=== PATIENT | male | born 1985 | race Two or more races ===

== ENCOUNTER 2017-09-12 10:35 | Emergency (ER) | payer SELFPAY ==
[~2017-09-12] VITALS: Ht 172.7 cm; Wt 64.0 kg
[2017-09-12] MEDS ORDERED: BACITRACIN ZINC OINT 500U/GM, 0.9 GM ONE (12:06)
[2017-09-12 14:06] VITALS: BP 119/69
== END 2017-09-12 14:08 | disposition home or self-care (01) ==
LOC: ED 14:00
DX: S00.411A Abrasion of right ear, initial encounter (principal); S62.367A Nondisplaced fracture of neck of fifth metacarpal bone, left hand, initial encounter for closed fracture; V29.40XA Motorcycle driver injured in collision with unspecified motor vehicles in traffic accident, initial encounter; Y93.55 Activity, bike riding; Y99.8 Other external cause status; Y92.410 Unspecified street and highway as the place of occurrence of the external cause
CPT/HCPCS: 29125; 70450; 99284